=== PATIENT | female | born 1975 | race Hispanic/Latino ===

== ENCOUNTER → 2019-01-20 | Outpatient (CLI) | payer SELFPAY | LOC: MAMMO 08:55 | PROVIDERS: ATTEND Surgery Plastic and Reconstructive Surgery | DX: Z12.31 Encounter for screening mammogram for malignant neoplasm of breast (principal) | CPT/HCPCS: 77067 ==

== ENCOUNTER 2021-06-09 16:13 | Emergency (ER) | payer OTHER ==
[~2021-06-09] VITALS: Ht 154.9 cm; Wt 102.1 kg
[2021-06-09] MEDS ORDERED: FAMOTIDINE 20 MG/2 ML VIAL IV STA (17:09)
[2021-06-09] MEDS ORDERED: FAMOTIDINE 20 MG/2 ML VIAL IV ONE (17:33)
== END 2021-06-09 19:40 | disposition home or self-care (01) ==
LOC: FSED 16:37
DX: R07.89 Other chest pain (principal); R11.0 Nausea; M25.512 Pain in left shoulder; M25.511 Pain in right shoulder; K21.9 Gastro-esophageal reflux disease without esophagitis; F41.9 Anxiety disorder, unspecified; R94.31 Abnormal electrocardiogram [ECG] [EKG]
CPT/HCPCS: 71046; 80053; 81003; 81025; 82553; 84484; 85025; 96374; 99284